=== PATIENT | male | born 1950 | race Caucasian/White ===

== ENCOUNTER 2017-11-18 16:23 | Emergency (ER) | payer OTHER ==
[2017-11-18 18:54] VITALS: BP 126/78
--- NOTE | 2017-11-18 19:09 | UC ---
Throat Pain/Nasal Ravi HPI - HPI Summary HPI Summary: 67 y/o female presents to the urgent care c/o productive cough with green phlegm , +PND, sinus congestion, sore throat for the past week. Pain with swallowing is 3/10. Mild subjective fever at times. He has taking Ibuprofen PO to alleviate symptoms. He had the flu vaccine in 07/2017. P denies SOB, wheezing, chest pain, abdominal pain, N/V/D - History of Current Complaint Chief Complaint: UCRespiratory Stated Complaint: COUGH,ACHES Time Seen by Provider: 11/18/17 19:08 Hx Obtained From: Patient Onset/Duration: Gradual Onset, Lasting Weeks - 1 week, Worse Since - yesterday Severity: Moderate Pain Intensity: 3 Pain Scale Used: 0-10 Numeric Cough: Sputum Appears - green Associated Signs & Symptoms: Positive: Nasal Discharge, Fever - subjective at home - Epiglottits Risk Factors Epiglottis Risk Factors: Negative - Allergies/Home Medications Allergies/Adverse Reactions: Allergies Allergy/AdvReac Type Severity Reaction Status Date / Time No Known Allergies Allergy Verified 11/18/17 16:55 Home Medications: Home Medications Atorvastatin* [Lipitor 10 MG*] 10 mg PO 1700 11/18/17 [History Confirmed ] Ibuprofen [Advil] 200 mg PO Q6H PRN 11/18/17 [History Confirmed 11/18/17] PMH/Surg Hx/FS Hx/Imm Hx Previously Healthy: Yes Endocrine History: Hypothyroidism, Dyslipidemia - Surgical History Surgical History: Yes Surgery Procedure, Year, and Place: L shoulder replacement, ankle fusions - Family History Known Family History: Positive: Cardiac Disease, Hypertension - Social History Occupation: Employed Full-time Lives: With Family Alcohol Use: Occasionally Substance Use Type: None Smoking Status (MU): Never Smoked Tobacco Review of Systems Constitutional: Fever - subjective at home Skin: Negative Eyes: Negative ENT: Sore Throat, Nasal Discharge, Sinus Congestion Respiratory: Cough - productive with green sputum Cardiovascular: Negative Gastrointestinal: Negative Genitourinary: Negative Motor: Negative Neurovascular: Negative Musculoskeletal: Negative Neurological: Negative Psychological: Negative Is Patient Immunocompromised?: No All Other Systems Reviewed And Are Negative: Yes Physical Exam Triage Information Reviewed: Yes Vital Signs: Initial Vital Signs Temp 98.5 F 11/18/17 16:51 Pulse 100 11/18/17 16:51 Resp 16 11/18/17 16:51 BP 127/75 11/18/17 16:51 Pulse Ox 97 11/18/17 16:51 - Additional Comments Vital Signs Reviewed: Yes General: well developed, well nourished male sitting in the examining table w/o any apparent distress Eyes: Positive: Conjunctiva Clear - PERRLA, EOMI, fundi grossly normal ENT: Positive: Normal ENT inspection, Hearing grossly normal, Pharynx normal, Nasal congestion - edematous and erythematous nasal mucosa, Nasal drainage - yellowish drainage, TMs normal. Negative: Tonsillar swelling, Tonsillar exudate Neck: Positive: Supple, Nontender, No Lymphadenopathy Respiratory: no orthopnea or dyspnea. Able to speak in full sentences, no retractions or accessory muscle use, no tripod position, stridor, or head bobbing. positive breath sounds, scattered rhonchi in the posterior lungs, no wheezes or rales. Cardiovascular: Positive: RRR, No Murmur, Pulses Normal, Brisk Capillary Refill Abdomen Description: Positive: Nontender, No Organomegaly, Soft. Negative: CVA Tenderness (R), CVA Tenderness (L) Bowel Sounds: Positive: Present Musculoskeletal Exam: Normal Musculoskeletal: Positive: Strength Intact, ROM Intact, No Edema Neurological Exam: Normal Psychological Exam: Normal Skin Exam: Normal Throat Pain/Nasal Course/Dx - Course Course Of Treatment: 67 y/o female presents to the urgent care c/o productive cough with green phlegm, +PND, sinus congestion, sore throat for the past week. Pain with swallowing is 3/10. Mild subjective fever at times. He has taking Ibuprofen PO to alleviate symptoms. He had the flu vaccine in 07/2017. P denies SOB, wheezing, chest pain, abdominal pain, N/V/D. Hx obtained. Pt with Acute bronchitis on examination. Pt Rx Z-rick PO, tessalon tabs PO and Albuterol inhaler to alleviate bronchospasm. Pt advised to increase fluid intake and eat well. if not improvement or worsening of symptoms to return to the urgent care or f/u with PCP for further management. pt understood and agreed with plan of care - Differential Dx/Diagnosis Differential Diagnosis/HQI/PQRI: Influenza, Pharyngitis, Sinusitis, URI, Other - bronchtiis Provider Diagnoses: 1- Acute Bronchitis Discharge - Discharge Plan Condition: Stable Disposition: HOME Prescriptions: Albuterol HFA INHALER* [Ventolin HFA Inhaler*] 1 - 2 puff INH Q6H PRN #1 mdi PRN Reason: Cough Azithromyxin RICK (NF) [Z-Rick (Zithromax) 250 mg tabs #6] 2 tab PO .TODAY, THEN 1 DAILY #6 tab Benzonatate CAP* [Tessalon 100 MG CAP*] 100 mg PO TID #15 cap Patient Education Materials: Acute Bronchitis (ED) Referrals: Leland Garsia MD [Primary Care Provider] - 3 Days Additional Instructions: 1-Please take full course of antibiotic to avoid resistance. 2-Take Tessalon PO tabs as directed and use the albuterol inhaler to alleviate cough. Increase fluid intake, rest and eat well. 3- If symptoms do not improve or worsen or your develop SOB with fever and severe wheezing please go immediately to the ER further evaluation and treatment. 4- F/u with your PCP in 3 days for further management
== END 2017-11-18 19:39 | disposition home or self-care (01) ==
LOC: UCEAST 16:23
DX: J20.9 Acute bronchitis, unspecified (principal); E03.9 Hypothyroidism, unspecified; E78.5 Hyperlipidemia, unspecified; Z96.612 Presence of left artificial shoulder joint
CPT/HCPCS: 99212; G0463

== ENCOUNTER 2019-10-29 07:02 | Emergency (ER) | payer BC, OTHER ==
[2019-10-29 07:19] VITALS: BP 158/74
--- NOTE | 2019-10-29 07:31 | UC ---
Neck Pain HPI - HPI Summary HPI Summary: 69 yo male with the onset of midline posterior neck pain 2 days ago. He denies any recent falls or other trauma. He has marked decreased range of motion. He denies any radiation of pain down his arms. He has a mild posterior headache. His neck pain response to Tylenol and ibuprofen. He has a history of degenerative joint disease. He has had a left shoulder replacement. - History of Current Complaint Chief Complaint: UCBackPain Stated Complaint: SORE NECK Time Seen by Provider: 10/29/19 07:21 Hx Obtained From: Patient Onset/Duration Of Injury/Symptoms: Days Timing: Constant Onset/Duration: Gradual Onset Severity: Mild Pain Intensity: 3 Pain Scale Used: 0-10 Numeric Location: Discrete At: - midline Character: Dull, Aching, Spasmotic Aggravating Factors: Nothing Alleviating Factors: Nothing Associated Signs & Symptoms: Positive: Negative Head: 1 - pain - Allergies/Home Medications Allergies/Adverse Reactions: Allergies Allergy/AdvReac Type Severity Reaction Status Date / Time No Known Allergies Allergy Verified 10/29/19 07:09 Home Medications: Home Medications Acetaminophen [Acetaminophen Extra Strength] 500 mg PO ONCE 10/29/19 [History Confirmed 10/29/19] Levothyroxine TAB* [Synthroid TAB*] 37.5 mcg PO DAILY 10/29/19 [History Confirmed 10/29/19] PMH/Surg Hx/FS Hx/Imm Hx Previously Healthy: Yes Endocrine History: Thyroid Disease, Dyslipidemia - Surgical History Surgical History: Yes Surgery Procedure, Year, and Place: L shoulder replacement, bilat. ankle fusions - Family History Known Family History: Positive: Cardiac Disease, Hypertension - Social History Alcohol Use: Daily Alcohol Amount: 1 glass/day Substance Use Type: None Smoking Status (MU): Never Smoked Tobacco Review of Systems All Other Systems Reviewed And Are Negative: Yes Constitutional: Positive: Negative Skin: Positive: Negative Eyes: Positive: Negative ENT: Positive: Negative Respiratory: Positive: Negative Cardiovascular: Positive: Negative Gastrointestinal: Positive: Negative Genitourinary: Positive: Negative Motor: Positive: Negative Neurovascular: Positive: Negative Musculoskeletal: Positive: Arthralgia - neck Neurological: Positive: Headache Psychological: Positive: Negative Physical Exam Triage Information Reviewed: Yes Appearance: Well-Appearing, No Pain Distress, Well-Nourished Vital Signs: Initial Vital Signs Temp 99 F 10/29/19 07:12 Pulse 49 10/29/19 07:12 Resp 18 10/29/19 07:12 BP 158/74 10/29/19 07:12 Pulse Ox 97 10/29/19 07:12 Vital Signs Reviewed: Yes Eyes: Positive: Conjunctiva Clear ENT: Positive: Hearing grossly normal, Uvula midline. Negative: Nasal congestion, Nasal drainage, Trismus, Muffled voice, Hoarse voice Dental Exam: Normal Neck: Positive: Nontender, No Lymphadenopathy, Other: - head held erect, decreased ROM both flexion/extension and turning side to side. Negative: Supple Respiratory: Positive: Lungs clear, Normal breath sounds, No respiratory distress, No accessory muscle use Cardiovascular: Positive: RRR, No Murmur Musculoskeletal: Positive: ROM Limited @ - left should Neurological: Positive: Alert Psychological Exam: Normal Skin Exam: Normal Diagnostics - Radiology No standard instances Radiology Interpretation Completed By: Radiologist Summary of Radiographic Findings: # Moderately severe disc space narrowing at C5 -C6 and mild disc space narrowing at C6-C7 with associated mild vertebral endplate osteophytosis. Multilevel facet joint osteoarthritis most prominent at C5-C6 and C6-C7. #. The oblique views are remarkable for osseous foraminal stenosis at C3-C4 and C4-C5 on the RIGHT secondary to uncinate process spurring and facet joint osteoarthritis. IMPRESSION: #. 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 #. Suggestion of osseous foraminal stenosis at C3-C4 and C4-C5 on the RIGHT. Correlate with clinical assessment and consider MRI for further evaluation if deemed appropriate. Neck Pain Course/Dx - Differential Dx/Diagnosis Provider Diagnosis: Other cervical disc degeneration, unspecified cervical region, Cervical myofascial strain, Elevated BP without diagnosis of hypertension Discharge ED - Sign-Out/Discharge Documenting (check all that apply): Patient Departure All imaging exams completed and their final reports reviewed: Yes - Discharge Plan Condition: Stable Disposition: HOME Prescriptions: Cyclobenzaprine (NF) [Cyclobenzaprine 5 MG (NF)] 5 mg PO TID PRN #15 tab PRN Reason: Spasms - Neck Patient Education Materials: Cervical Strain (ED), Soft Cervical Collar (ED) Referrals: Leland Garsia MD [Primary Care Provider] - Additional Instructions: XR results: # Moderately severe disc space narrowing at C5-C6 and mild disc space narrowing at C6-C7 with associated mild vertebral endplate osteophytosis. Multilevel facet joint osteoarthritis most prominent at C5-C6 and C6-C7. #. The oblique views are remarkable for osseous foraminal stenosis at C3-C4 and C4-C5 on the RIGHT secondary to uncinate process spurring and facet joint osteoarthritis. IMPRESSION: #. 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 # . Suggestion of osseous foraminal stenosis at C3-C4 and C4-C5 on the RIGHT. Correlate with clinical assessment and consider MRI for further evaluation if deemed appropriate. - Billing Disposition and Condition Condition: STABLE Disposition: Home
== END 2019-10-29 08:25 | disposition home or self-care (01) ==
LOC: UCEAST 07:02
DX: S16.1XXA Strain of muscle, fascia and tendon at neck level, initial encounter (principal); R03.0 Elevated blood-pressure reading, without diagnosis of hypertension; M50.30 Other cervical disc degeneration, unspecified cervical region; M47.892 Other spondylosis, cervical region; R51 Headache; E07.9 Disorder of thyroid, unspecified; Z96.612 Presence of left artificial shoulder joint; Z79.890 Hormone replacement therapy; Z98.1 Arthrodesis status; X58.XXXA Exposure to other specified factors, initial encounter; Y92.9 Unspecified place or not applicable
CPT/HCPCS: 72050; 99213; G0463

== ENCOUNTER 2023-05-25 09:20 | Observation (INO) ==
[2023-05-25] MEDS ORDERED: Lactated Ringers 1000 ml BAG 1,000 ML IV ONE (10:01)
[2023-05-25] MEDS ORDERED: Ondansetron 4 mg VIAL 2 MG/ML 2 ml VIAL IV ONE (10:01)
[2023-05-25] MEDS ORDERED: Acetaminophen IV 1 GM/100ML 1,000 MG/100 ML BAG IV ONE (10:01)
[2023-05-25 10:30] LABS: Hematocrit 37.2 % (38-53); Hemoglobin 12.7 g/dL (13.2-16.3); Mean Corpuscular Hemoglobin 30.3 pg (27-33); Mean Corpuscular Hgb Conc 34.2 g/dL (31-36); Mean Corpuscular Volume 88.7 fL (80-97); Red Blood Count 4.19 10^6/uL (4.06-5.63); Red Cell Distribution Width 13.7 % (12-17); White Blood Count 5.8 10^3/uL (3.6-10.2)
[2023-05-25 10:34] LABS: Activated Partial Thrombo Time 29.5 seconds (26.0-38.0); INR 1.4 (0.88-1.18)
[2023-05-25 10:41] LABS: Albumin 3.8 g/dL (3.2-5.2); Albumin/Globulin Ratio 1.2 (1-3); C Reactive Protein 200.48 mg/L (<8.01); Calcium 8.2 mg/dL (8.6-10.3); Creatinine, Serum 1.62 mg/dL (0.67-1.17); Globulin 3.3 g/dL (2-4); Potassium 3.8 mmol/L (3.5-5.0); Total Bilirubin 1.2 mg/dL (0.2-1.0); Total Protein 7.1 g/dL (6.4-8.9); eGFR CKD-EPI 45.4 (>60)
[2023-05-25 11:05] LABS: ABS Lymphocytes 0.5 10^3/uL (1.0-4.8); ABS Monocytes 0.9 10^3/uL (0.0-1.1); ABS Neutrophils 4.3 10^3/uL (1.5-7.6); ABS Nucleated RBC 0.01 10^3/ul; Eosinophil % 0.1 %; Lymphocyte % 8.9 %; Mean Platelet Volume 8.6 fL (7.5-11.2); Nucleated Red Blood Cells % 0.1 /100 WBC (0.0-0.4); Platelet Count 36 10^3/uL (150-450)
[2023-05-25 11:07] LABS: RBC Parasite Smear POSITIVE (No Parasite)
[2023-05-25] MEDS ORDERED: DOXYcycline 100 MG in NS 0.9% 250 ml 250 ML IVPB ONE (11:27)
[2023-05-25] MEDS ORDERED: Azithromycin 500 mg/250 ml NS 500 MG/250 ML BAG IVPB ONE (11:27)
[2023-05-25 12:04] LABS: High Sensitivity Troponin 1 Hr 20 pg/mL (<20)
[2023-05-25 12:31] LABS: Direct Bilirubin 0.2 mg/dL (0.03-0.18)
[2023-05-25 13:55] LABS: Osmolality Serum 276 mOsm/kg (275-295)
[2023-05-25 15:11] LABS: Calcium 7.6 mg/dL (8.6-10.3); Potassium 3.9 mmol/L (3.5-5.0)
[2023-05-25 15:16] LABS: Creatinine, Serum 1.46 mg/dL (0.67-1.17); eGFR CKD-EPI 51.4 (>60)
[2023-05-25 17:37] LABS: Urine Appearance Cloudy; Urine Bilirubin Negative (Negative); Urine Blood 2+ (Negative); Urine Color Yellow; Urine Glucose Negative (Negative); Urine Ketones Negative (Negative); Urine Nitrite Negative (Negative); Urine Protein 2+(100 mg/dL) (Negative); Urine Specific Gravity 1.019 (1.002-1.030); Urine Urobilinogen Negative (Negative)
[2023-05-25 17:44] LABS: Urine Bacteria Absent (Absent); Urine Red Blood Cell Trace(0-2/hpf) (Absent); Urine Squamous Epithelial Cell Present (Absent); Urine White Blood Cell Trace(0-5/hpf) (Absent)
[2023-05-25 20:00] LABS: Urine Osmo 607 mOsm/kg (150-1150)
[2023-05-26 06:08] LABS: Hematocrit 31.1 % (38-53); Hemoglobin 10.9 g/dL (13.2-16.3); Mean Corpuscular Hemoglobin 30.8 pg (27-33); Mean Corpuscular Volume 87.8 fL (80-97); Mean Platelet Volume 8.7 fL (7.5-11.2); Platelet Count 33 10^3/uL (150-450); Red Blood Count 3.54 10^6/uL (4.06-5.63); Red Cell Distribution Width 13.8 % (12-17); White Blood Count 4.4 10^3/uL (3.6-10.2)
[2023-05-26 06:21] LABS: Calcium 8.2 mg/dL (8.6-10.3); Creatinine, Serum 1.49 mg/dL (0.67-1.17); Potassium 3.9 mmol/L (3.5-5.0); eGFR CKD-EPI 50.2 (>60)
[2023-05-26 07:16] LABS: ABS Lymphocytes 0.7 10^3/uL (1.0-4.8); ABS Monocytes 0.9 10^3/uL (0.0-1.1); ABS Neutrophils 2.8 10^3/uL (1.5-7.6); ABS Nucleated RBC 0.01 10^3/ul; Eosinophil % 0.6 %; Lymphocyte % 16.1 %; Nucleated Red Blood Cells % 0.2 /100 WBC (0.0-0.4)
[2023-05-26] MEDS: Lactated Ringers 1000 ml BAG 1,000 ML IV SCH (16:48)
[2023-05-27] MEDS: Lactated Ringers 1000 ml BAG 1,000 ML IV SCH (02:55)
[2023-05-27 05:57] LABS: Hematocrit 30.8 % (38-53); Hemoglobin 10.7 g/dL (13.2-16.3); Mean Corpuscular Hemoglobin 30.3 pg (27-33); Mean Corpuscular Hgb Conc 34.5 g/dL (31-36); Mean Corpuscular Volume 87.6 fL (80-97); Mean Platelet Volume 7.8 fL (7.5-11.2); Platelet Count 39 10^3/uL (150-450); Red Blood Count 3.52 10^6/uL (4.06-5.63); Red Cell Distribution Width 13.9 % (12-17); White Blood Count 3.5 10^3/uL (3.6-10.2)
[2023-05-27 06:13] LABS: Albumin/Globulin Ratio 1.2 (1-3); Calcium 8.2 mg/dL (8.6-10.3); Creatinine, Serum 1.38 mg/dL (0.67-1.17); Globulin 2.5 g/dL (2-4); Magnesium 1.8 mg/dL (1.9-2.7); Phosphorus 2.5 mg/dL (2.5-5.0); Potassium 4.1 mmol/L (3.5-5.0); Total Bilirubin 0.9 mg/dL (0.2-1.0); Total Protein 5.5 g/dL (6.4-8.9)
[2023-05-27 07:34] LABS: ABS Eosinophils 0.1 10^3/uL (0.0-0.5); ABS Lymphocytes 0.7 10^3/uL (1.0-4.8); ABS Monocytes 0.6 10^3/uL (0.0-1.1); ABS Neutrophils 2.1 10^3/uL (1.5-7.6); ABS Nucleated RBC 0.01 10^3/ul; Eosinophil % 1.9 %; Lymphocyte % 19.3 %; Nucleated Red Blood Cells % 0.2 /100 WBC (0.0-0.4)
[2023-05-27 07:35] LABS: RBC Morphology Normal (Normal)
[2023-05-27 13:51] VITALS: BP 117/74
[2023-05-27 18:55] LABS: Adenovirus F40/41 Negative (Negative); Astrovirus Negative (Negative); Cryptosporidium species Negative (Negative); Cyclospora cayetanensis Negative (Negative); Entamoeba histolytica Negative (Negative); Enteroaggregative E.coli(EAEC) Negative (Negative); Enteropathogenic Ecoli(EPEC) Negative (Negative); Enterotoxigenic Ecoli(ETEC) Negative (Negative); Norovirus GI/GII Negative (Negative); Plesiomonas shigelloides Negative (Negative); Salmonella species Negative (Negative); Sapovirus Negative (Negative); Shiga toxin producing E. coli Negative (Negative); Shigella/Enteroinvasive E.coli Negative (Negative); Specimen Source STOOL; Vibrio cholerae Negative (Negative); Yersinia species Negative (Negative)
[2023-05-28 00:45] LABS: Anaplasma phagocytophilum Negative (Negative); B. miyamotoi PCR, B Negative (Negative); Babesia divergens/MO-1 Negative (Negative); Babesia ducani Negative (Negative); Ehrlichia chaffeensis Negative (Negative); Ehrlichia ewingii/canis Negative (Negative); Ehrlichia muris eauclairensis Negative (Negative)
== END 2023-05-27 15:30 | disposition home or self-care (01) ==
LOC: ED 09:20 → EDHOLD 09:20 → SUATTDRO 11:49 → MED 14:02
PROVIDERS: ADMIT Internal Medicine; ATTEND Internal Medicine